=== PATIENT | male | born 1935 | race Caucasian/White ===

== ENCOUNTER 2020-08-07 09:56 | Emergency (ER) | payer OTHER ==
[~2020-08-07] VITALS: Ht 175.3 cm; Wt 81.6 kg
--- NOTE | 2020-08-07 10:20 | NUR ---
CALLED FOR TRIAGE, NO ANSWER
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
--- NOTE | 2020-08-07 11:10 | NUR ---
Lois valdez in [facility] - 08/07/20 at [email or web address] Easton evaluating patient at bedside
[2020-08-07 11:13] VITALS: BP_SYST 142
--- NOTE | 2020-08-07 11:20 | NUR ---
Dr Easton evaluating patient in the bedside
--- NOTE | 2020-08-07 11:36 | NUR ---
Patient given written and verbal discharge instructions and verbalizes understanding. ER MD discussed with patient the results and treatment provided. Patient in stable condition. ID arm band removed. No Rx given. Patient educated on pain management and to follow up with PMD. Pain Scale 0/10. Opportunity for questions provided and answered. Medication side effect fact sheet provided.
== END 2020-08-07 11:35 | disposition home or self-care (01) ==
LOC: SED 09:56
DX: S50.311A Abrasion of right elbow, initial encounter (principal); V29.9XXA Motorcycle rider (driver) (passenger) injured in unspecified traffic accident, initial encounter; Y93.89 Activity, other specified; Y92.89 Other specified places as the place of occurrence of the external cause; Y99.8 Other external cause status
CPT/HCPCS: 99283; J7030